=== PATIENT | female | born 1995 | race Hispanic/Latino ===

== ENCOUNTER 2017-04-30 14:09 | Emergency (ER) | payer MEDICAID | END 2017-04-30 15:50 | disposition home or self-care (01) | LOC: EDH 14:09 | DX: O90.0 Disruption of cesarean delivery wound (principal); Z98.890 Other specified postprocedural states; Z72.0 Tobacco use ==

== ENCOUNTER 2018-04-10 13:04 | Emergency (ER) | payer MEDICAID, OTHER ==
[2018-04-10] MEDS ORDERED: ACETAMINOPHEN-CODEINE 300/30MG TAB ONE (14:53)
== END 2018-04-10 15:22 | disposition home or self-care (01) ==
LOC: EDH 13:04
DX: S52.591A Other fractures of lower end of right radius, initial encounter for closed fracture (principal); S52.611A Displaced fracture of right ulna styloid process, initial encounter for closed fracture; Z88.6 Allergy status to analgesic agent; V86.56XA Driver of dirt bike or motor/cross bike injured in nontraffic accident, initial encounter; Y93.55 Activity, bike riding; Y92.488 Other paved roadways as the place of occurrence of the external cause; Y99.8 Other external cause status
CPT/HCPCS: 29125; 73090; 73110